=== PATIENT | female | born 1980 | race African-American/Black ===

== ENCOUNTER → 2017-11-17 | Outpatient (CLI) | payer OTHER, MEDICAID ==
[~2017-11-17] MED LIST: GADOBUTROL 10 MMOL/10 ML PFS ONE
== END | disposition home or self-care (01) ==
LOC: CFH 12:39 → EDSTATUS 13:00
PROVIDERS: ATTEND Specialist
DX: G35 Multiple sclerosis (principal); G95.9 Disease of spinal cord, unspecified; R90.82 White matter disease, unspecified
CPT/HCPCS: 70553; 72156; A9585

== ENCOUNTER 2018-11-03 14:43 | Outpatient (CLI) | payer MEDICARE, MEDICAID ==
[~2018-11-03] VITALS: Ht 167.6 cm; Wt 110.0 kg
== END 2018-11-03 23:59 | disposition home or self-care (01) ==
LOC: INFUSION 14:43
PROVIDERS: ATTEND Specialist
DX: G35 Multiple sclerosis (principal)
CPT/HCPCS: 96365; J2323

== ENCOUNTER 2019-01-08 07:12 | Outpatient (CLI) | payer MEDICARE, MEDICAID ==
[~2019-01-08] VITALS: Ht 167.6 cm; Wt 115.0 kg
[2019-01-08 14:30] VITALS: BP 122/83
[2019-01-08] MEDS ORDERED: NATALIZUMAB 300 MG in SODIUM CHLORIDE 0.9% 100 ML IV ONE (15:00)
== END 2019-01-08 23:59 | disposition home or self-care (01) ==
LOC: INFUSION 07:12
PROVIDERS: ATTEND Specialist
DX: G35 Multiple sclerosis (principal)
CPT/HCPCS: 96365; J2323

== ENCOUNTER 2019-02-05 14:07 | Outpatient (CLI) | payer MEDICARE, MEDICAID ==
[~2019-02-05] VITALS: Ht 167.6 cm; Wt 113.6 kg
[2019-02-05 14:00] VITALS: BP 96/76
[2019-02-05] MEDS ORDERED: NATALIZUMAB 300 MG in SODIUM CHLORIDE 0.9% 100 ML IV ONE (15:00)
== END 2019-02-05 23:59 | disposition home or self-care (01) ==
LOC: INFUSION 14:07
PROVIDERS: ATTEND Specialist
DX: G35 Multiple sclerosis (principal)
CPT/HCPCS: 96365; J2323

== ENCOUNTER 2019-03-06 07:48 | Outpatient (CLI) | payer MEDICARE, MEDICAID ==
[~2019-03-06] VITALS: Ht 167.6 cm; Wt 104.5 kg
[2019-03-06 14:20] VITALS: BP 120/89
[2019-03-06] MEDS ORDERED: NATALIZUMAB 300 MG in SODIUM CHLORIDE 0.9% 100 ML IV ONE (15:30)
== END 2019-03-06 23:59 | disposition home or self-care (01) ==
LOC: INFUSION 07:48
PROVIDERS: ATTEND Specialist
DX: G35 Multiple sclerosis (principal)
CPT/HCPCS: 96365; J2323

== ENCOUNTER 2019-04-09 14:18 | Outpatient (CLI) | payer MEDICARE, MEDICAID ==
[~2019-04-09] VITALS: Ht 167.6 cm; Wt 104.5 kg
[2019-04-09] MEDS ORDERED: NATALIZUMAB 300 MG in SODIUM CHLORIDE 0.9% 100 ML IV ONE (15:30)
[2019-04-09 15:31] VITALS: BP 127/78
== END 2019-04-09 23:59 | disposition home or self-care (01) ==
LOC: INFUSION 14:18
PROVIDERS: ATTEND Specialist
DX: G35 Multiple sclerosis (principal)
CPT/HCPCS: 96365; J2323

== ENCOUNTER 2019-05-08 13:26 | Outpatient (CLI) | payer MEDICARE, MEDICAID ==
[~2019-05-08] VITALS: Ht 167.6 cm; Wt 104.5 kg
[2019-05-08 13:20] VITALS: BP 116/83
[2019-05-08] MEDS ORDERED: NATALIZUMAB 300 MG in SODIUM CHLORIDE 0.9% 100 ML IV ONE (14:00)
== END 2019-05-08 23:59 | disposition home or self-care (01) ==
LOC: INFUSION 13:26
PROVIDERS: ATTEND Specialist
DX: G35 Multiple sclerosis (principal)
CPT/HCPCS: 96365; J2323